=== PATIENT | male | born 1950 | race Caucasian/White ===

== ENCOUNTER → 2017-02-06 | Outpatient (CLI) | payer MEDICARE, OTHER ==
[~2017-02-06] MED LIST: ALLO300T PO; ASPI-496 PO; CANA300T PO; FENTANYL PF 100 MCG/2ML ONE; GADOBUTROL 10 MMOL/10 ML PFS ONE; METF500T4 PO; MIDAZOLAM 1 MG/ML, 5ML ONE; SIMV80TA3 PO; VALS1TAB24 PO
== END | disposition home or self-care (01) ==
LOC: RAD 07:54
PROVIDERS: ATTEND Otolaryngology
DX: R42 Dizziness and giddiness (principal); H90.3 Sensorineural hearing loss, bilateral
CPT/HCPCS: 70553; A9585; J2250; J3010; 99156; 99157

== ENCOUNTER 2020-04-11 07:02 | Outpatient (CLI) | payer MEDICARE, OTHER ==
[~2020-04-11 07:02] MED LIST changes: -FENTANYL PF 100 MCG/2ML ONE; -GADOBUTROL 10 MMOL/10 ML PFS ONE; +METF500T17 PO; -METF500T4 PO; -MIDAZOLAM 1 MG/ML, 5ML ONE; +SIMV80TA18 PO; -SIMV80TA3 PO; -VALS1TAB24 PO; +VALS1TAB25 PO
[2020-04-11] MEDS ORDERED: FENTANYL PF 100 MCG/2ML ONE (07:54)
[2020-04-11] MEDS ORDERED: MIDAZOLAM 1 MG/ML, 5ML ONE (07:54)
== END 2020-04-11 23:59 | disposition home or self-care (01) ==
LOC: RAD 07:02
PROVIDERS: ATTEND Physical Medicine & Rehabilitation
DX: M51.36 Other intervertebral disc degeneration, lumbar region (principal); M48.061 Spinal stenosis, lumbar region without neurogenic claudication; M48.07 Spinal stenosis, lumbosacral region; M25.78 Osteophyte, vertebrae; E11.9 Type 2 diabetes mellitus without complications; I10 Essential (primary) hypertension; Z79.1 Long term (current) use of non-steroidal anti-inflammatories (NSAID); Z79.899 Other long term (current) drug therapy; Z82.61 Family history of arthritis
CPT/HCPCS: 72148; 99156; 99157; J2250; J3010

== ENCOUNTER → 2021-02-06 | Outpatient (CLI) | payer MEDICARE, OTHER ==
[~2021-02-06] MED LIST changes: +FENTANYL PF 100 MCG/2ML ONE; +FLUMAZENIL 0.1 MG/1 ML, 5ML ONE; +MIDAZOLAM 1 MG/ML, 5ML ONE; +NALOXONE 1 MG/ML, 2ML ONE
== END | disposition home or self-care (01) ==
LOC: RAD 06:37
PROVIDERS: ATTEND Neurological Surgery
DX: M54.5 Low back pain (principal); M48.061 Spinal stenosis, lumbar region without neurogenic claudication; E11.9 Type 2 diabetes mellitus without complications; Z98.890 Other specified postprocedural states
CPT/HCPCS: 72148; 99156; 99157; J2250; J3010; J2310

== ENCOUNTER → 2021-02-09 | Outpatient (CLI) | payer MEDICARE, OTHER ==
[~2021-02-09] MED LIST changes: -FENTANYL PF 100 MCG/2ML ONE; -FLUMAZENIL 0.1 MG/1 ML, 5ML ONE; -MIDAZOLAM 1 MG/ML, 5ML ONE; -NALOXONE 1 MG/ML, 2ML ONE
== END | disposition home or self-care (01) ==
LOC: RAD 11:13
PROVIDERS: ATTEND Neurological Surgery
DX: M51.36 Other intervertebral disc degeneration, lumbar region (principal); M48.061 Spinal stenosis, lumbar region without neurogenic claudication
CPT/HCPCS: 72110